=== PATIENT | female | born 1995 | race Caucasian/White ===

== ENCOUNTER 2019-11-01 19:16 | Emergency (ER) | payer OTHER ==
[~2019-11-01] VITALS: Ht 152.4 cm; Wt 61.2 kg
[2019-11-01] MEDS ORDERED: SERT25TA PO (19:27)
--- NOTE | 2019-11-01 19:30 | NUR ---
Patient ambulated with stable gait. A/Ox4. Speech is clear, speaks in complete sentences. No acute neuro deficits. Patient came for c/o sore throat x2 days. No evidence of thrush, or inflammation. Denies any sob, cough. Afebrile. Patient in bed at lowest position, sr upx2, call light within reach. Safety precautions implemented per protocol.
[2019-11-01] MEDS ORDERED: LIDOCAINE VISCUS 2% 15 ML UDC ONE (19:52)
[2019-11-01] MEDS ORDERED: LIDOCAINE VISCUS 2% 15 ML UDC MM ONE (20:00)
--- NOTE | 2019-11-01 20:46 | NUR ---
Patient discharged to home in stable condition. Written and verbal after care instructions given. Patient verbalizes understanding of instructions. Stressed follow up or return to ER for worsening s/s.
[2019-11-01 20:56] VITALS: BP 121/79
== END 2019-11-01 20:58 | disposition home or self-care (01) ==
LOC: ER 19:19
DX: J02.8 Acute pharyngitis due to other specified organisms (principal)
CPT/HCPCS: 36415; 86403; A4663